=== PATIENT | female | born 1970 | race Caucasian/White ===

== ENCOUNTER 2021-03-26 18:31 | Emergency (ER) | payer OTHER ==
[~2021-03-26 18:31] MED LIST: IBUPROFEN600 MG PO; NORCO 5-325 TA1 EACH PO; Voltaren Gel 1 % TOP
[2021-03-26 19:48] LABS: HEMOGLOBIN 14.9 gm/dl (12.3-15.3); RED BLOOD COUNT 4.74 M/UL (4.00-5.10); WHITE BLOOD COUNT 11.7 K/UL (4.5-11.0)
[2021-03-26 20:10] LABS: BUN/CREATININE RATIO 20 (0-10)
[2021-03-26] MEDS ORDERED: BENTYL 20MG TAB20 MG PO (21:20)
[2021-03-26] MEDS ORDERED: ZOFRAN4 MG PO (21:20)
== END 2021-03-26 22:00 | disposition home or self-care (01) ==
LOC: ER1 18:31
PROVIDERS: Physician Assistant
DX: R10.31 Right lower quadrant pain (principal); E87.6 Hypokalemia; R19.7 Diarrhea, unspecified; R11.2 Nausea with vomiting, unspecified; I10 Essential (primary) hypertension; Z88.2 Allergy status to sulfonamides; Z91.041 Radiographic dye allergy status; Z88.1 Allergy status to other antibiotic agents; Z79.899 Other long term (current) drug therapy
CPT/HCPCS: 36415; 80053; 81001; 83605; 85025; 87040; 96374; 96375; 99284; J1885; J2270; J2405; Q9967